=== PATIENT | female | born 1995 | race Caucasian/White ===

== ENCOUNTER → 2019-01-22 | Outpatient (CLI) | payer OTHER | END | disposition home or self-care (01) | LOC: CFH 15:35 | PROVIDERS: ATTEND Obstetrics & Gynecology | DX: O32.1XX0 Maternal care for breech presentation, not applicable or unspecified (principal); Z3A.17 17 weeks gestation of pregnancy | CPT/HCPCS: 76805 ==

== ENCOUNTER 2019-04-07 12:41 | Outpatient (CLI) | payer OTHER ==
[~2019-04-07] VITALS: Ht 165.1 cm; Wt 67.7 kg
== END 2019-04-07 14:20 | disposition home or self-care (01) ==
LOC: LDOP 12:41
PROVIDERS: ATTEND Obstetrics & Gynecology
DX: O26.893 Other specified pregnancy related conditions, third trimester (principal); M54.9 Dorsalgia, unspecified; Z3A.28 28 weeks gestation of pregnancy
CPT/HCPCS: 59025; 81003; 84112; 87086; 99201; G0463